=== PATIENT | male | born 1955 | race Caucasian/White ===

== ENCOUNTER → 2016-12-17 | Outpatient (CLI) | payer OTHER ==
[~2016-12-17] MED LIST: ALBU8.5H5 INH; ALLO300T PO; ASPI325T4 PO; BENZ100C PO; CARV-39 PO; CEFD300C2 PO; DRON400T PO; LISI-170 PO; LOVA40TA2 PO; METF500T27 PO; REGADENOSON 0.4 MG/5 ML SYRINGE ONE; RIVA20TA PO; SPIR25TA PO; WARF10TA6 PO
== END | disposition home or self-care (01) ==
LOC: CFH 07:50
PROVIDERS: ATTEND Internal Medicine Cardiovascular Disease
DX: I25.10 Atherosclerotic heart disease of native coronary artery without angina pectoris (principal); I10 Essential (primary) hypertension; E11.9 Type 2 diabetes mellitus without complications
CPT/HCPCS: 78452; 93017; A9502; J2785

== ENCOUNTER → 2018-02-24 | Outpatient (CLI) | payer OTHER ==
[~2018-02-24] MED LIST changes: +ASPI325T17 PO; -ASPI325T4 PO; -CEFD300C2 PO; +CEFD300C37 PO; -REGADENOSON 0.4 MG/5 ML SYRINGE ONE; +WARF10TA43 PO; -WARF10TA6 PO
== END | disposition home or self-care (01) ==
LOC: CFH 08:15
PROVIDERS: ATTEND Internal Medicine Cardiovascular Disease
DX: I34.0 Nonrheumatic mitral (valve) insufficiency (principal); I10 Essential (primary) hypertension; I25.10 Atherosclerotic heart disease of native coronary artery without angina pectoris; E11.9 Type 2 diabetes mellitus without complications; I25.2 Old myocardial infarction; Z95.5 Presence of coronary angioplasty implant and graft
CPT/HCPCS: 0399T; 93306